=== PATIENT | male | born 1990 | race American Indian/Alaskan Native ===

== ENCOUNTER 2018-10-13 09:38 | Emergency (ER) | payer OTHER ==
[2018-10-13] MEDS ORDERED: NARCAN 2 MG/2 ML IV ONE (09:48)
--- NOTE | 2018-10-13 10:24 | XRay Report ---
AP CHEST: HISTORY: Difficulty in breathing AP view of the chest demonstrates a normal mediastinal and cardiac contour with clear lungs and normal bony and soft tissue structures. IMPRESSION: Unremarkable AP chest.
[2018-10-13 10:46] LABS: Basophils % (Auto) 0.2 % (0.0-1.8); Hematocrit 45.2 % (35.5-45.6); Hemoglobin 15.7 gm/dl (11.8-15.2); Lymphocytes # (Auto) 1.2 K/mm3 (1.2-5.4); Lymphocytes % (Auto) 10.1 % (13.4-35.0); Mean Corpuscular HGB Conc 35 % (32-34); Mean Corpuscular Volume 94 fl (84-94); Monocytes # (Auto) 0.5 K/mm3 (0.0-0.8); Platelet Count 151 K/mm3 (140-440); Red Blood Count 4.83 M/mm3 (3.65-5.03); Red Cell Distribution Width 13.4 % (13.2-15.2)
[2018-10-13 11:12] LABS: Alanine Aminotransferase 16 units/L (7-56); Albumin 4.4 g/dL (3.9-5); BUN/Creatinine Ratio 7; Blood Urea Nitrogen 7 mg/dL (9-20); Calcium 8.5 mg/dL (8.4-10.2); Creatine Kinase MB 4.8 ng/mL (0.0-4.0); Hemolysis Index 30
[2018-10-13 11:26] LABS: Bilirubin,Direct < 0.2 mg/dL (0-0.2)
--- NOTE | 2018-10-13 11:28 | Emergency Department Report ---
ED Neuro Deficit HPI - General Chief Complaint: Overdose Stated Complaint: ALLERGIC REACTION Time Seen by Provider: 10/13/18 09:47 Source: patient, EMS Mode of arrival: Stretcher Limitations: Other - History of Present Illness -: Sudden - Related Data Home Medications: Home Medications Medication Instructions Recorded Confirmed Last Taken No Known Home Medications [No 10/13/18 10/13/18 Unknown Reported Home Medications] Allergies/Adverse Reactions: Allergies Allergy/AdvReac Type Severity Reaction Status Date / Time No Known Allergies Allergy Verified 10/13/18 11:53 ED Review of Systems ROS: Stated complaint: ALLERGIC REACTION Other details as noted in HPI ED Past Medical Hx - Past Medical History Previous Medical History?: No - Surgical History Past Surgical History?: No - Social History Smoking Status: Unknown if ever smoked Substance Use Type: Other - Medications Home Medications: Home Medications Medication Instructions Recorded Confirmed Last Taken Type No Known Home Medications [No 10/13/18 10/13/18 Unknown History Reported Home Medications] ED Neuro Physical Exam - General Limitations: Other ED Course Vital Signs 10/13/18 10/13/18 10/13/18 09:40 09:46 09:47 Temperature 98.4 F Pulse Rate 96 H 105 H 94 H Respiratory 17 22 10 L Rate Blood Pressure 151/79 Blood Pressure 157/80 [Right] O2 Sat by Pulse 100 Oximetry 10/13/18 10/13/18 10/13/18 10:00 10:15 10:31 Temperature Pulse Rate 87 87 80 Respiratory 13 16 14 Rate Blood Pressure 157/96 157/96 152/94 Blood Pressure [Right] O2 Sat by Pulse 85 100 100 Oximetry 10/13/18 10/13/18 10/13/18 10:45 11:01 11:15 Temperature Pulse Rate 93 H 95 H 97 H Respiratory 15 12 10 L Rate Blood Pressure 152/94 149/89 165/89 Blood Pressure [Right] O2 Sat by Pulse 100 96 91 Oximetry 10/13/18 11:31 Temperature Pulse Rate 96 H Respiratory 10 L Rate Blood Pressure 147/89 Blood Pressure [Right] O2 Sat by Pulse 96 Oximetry - Lab Data Result diagrams: 10/13/18 10:29 10/13/18 10:29 Lab Results 10/13/18 10/13/18 Range/Units 10:29 10:29 WBC 11.6 H (4.5-11.0) K/mm3 RBC 4.83 (3.65-5.03) M/mm3 Hgb 15.7 H (11.8-15.2) gm/dl Hct 45.2 (35.5-45.6) % MCV 94 (84-94) fl MCH 33 H (28-32) pg MCHC 35 H (32-34) % RDW 13.4 (13.2-15.2) % Plt Count 151 (140-440) K/mm3 Lymph % (Auto) 10.1 L (13.4-35.0) % [place] % (Auto) 4.0 (0.0-7.3) % Eos % (Auto) 0.0 (0.0-4.3) % Baso % (Auto) 0.2 (0.0-1.8) % Lymph # 1.2 (1.2-5.4) K/mm3 [place] # 0.5 (0.0-0.8) K/mm3 Eos # 0.0 (0.0-0.4) K/mm3 Baso # 0.0 (0.0-0.1) K/mm3 Seg Neutrophils % 85.7 H (40.0-70.0) % Seg Neutrophils # 10.0 H (1.8-7.7) K/mm3 Sodium 138 (137-145) mmol/L Potassium 3.8 (3.6-5.0) mmol/L Chloride 101.0 (98-107) mmol/L Carbon Dioxide 26 (22-30) mmol/L Anion Gap 15 mmol/L BUN 7 L (9-20) mg/dL Creatinine 1.0 (0.8-1.5) mg/dL Estimated GFR > 60 ml/min BUN/Creatinine Ratio 7 % Glucose 148 H (75-100) mg/dL Calcium 8.5 (8.4-10.2) mg/dL Magnesium 2.60 H (1.7-2.3) mg/dL Total Bilirubin 0.50 (0.1-1.2) mg/dL Direct Bilirubin < 0.2 (0-0.2) mg/dL Indirect Bilirubin 0.3 mg/dL AST 24 (5-40) units/L ALT 16 (7-56) units/L Alkaline Phosphatase 54 (35-129) units/L Total Creatine Kinase 421 H (55-170) units/L CK-MB (CK-2) 4.8 H (0.0-4.0) ng/mL CK-MB (CK-2) Rel Index 1.1 (0-4) Total Protein 7.5 (6.3-8.2) g/dL Albumin 4.4 (3.9-5) g/dL Albumin/Globulin Ratio 1.4 % Laboratory Results - last 24 hr 10/13/18 10/13/18 10:29 10:29 WBC 11.6 H RBC 4.83 Hgb 15.7 H Hct 45.2 MCV 94 MCH 33 H MCHC 35 H RDW 13.4 Plt Count 151 Lymph % (Auto) 10.1 L [place] % (Auto) 4.0 Eos % (Auto) 0.0 Baso % (Auto) 0.2 Lymph # 1.2 [place] # 0.5 Eos # 0.0 Baso # 0.0 Seg Neutrophils % 85.7 H Seg Neutrophils # 10.0 H Sodium 138 Potassium 3.8 Chloride 101.0 Carbon Dioxide 26 Anion Gap 15 BUN 7 L Creatinine 1.0 Estimated GFR > 60 BUN/Creatinine Ratio 7 Glucose 148 H Calcium 8.5 Magnesium 2.60 H Total Bilirubin 0.50 Direct Bilirubin < 0.2 Indirect Bilirubin 0.3 AST 24 ALT 16 Alkaline Phosphatase 54 Total Creatine Kinase 421 H CK-MB (CK-2) 4.8 H CK-MB (CK-2) Rel Index 1.1 Total Protein 7.5 Albumin 4.4 Albumin/Globulin Ratio 1.4 Critical care attestation.: If time is entered above; I have spent that time in minutes in the direct care of this critically ill patient, excluding procedure time. ED Disposition Condition: Stable Referrals: PRIMARY CARE, [Primary Care Provider] - 3-5 Days
[2018-10-13] MEDS ORDERED: NARCAN 0.4 MG/1 ML IV ONE (11:50)
[2018-10-13] MEDS ORDERED: NARCAN 0.4 MG/1 ML ONE (11:50)
[2018-10-13 12:51] LABS: Bilirubin,Urine NEG (Negative); Blood,Urine NEG (Negative); Color,Urine Straw (Yellow); Granular Casts,Urine 3 /LPF; Hyaline Casts,Urine 1 /LPF; Mucus,Urine FEW /HPF; Protein,Urine <15 mg/dL mg/dL (Negative); Urobilinogen,Urine < 2.0 mg/dL (<2.0)
[2018-10-13 12:58] LABS: Benzodiazepines Screen,Urine PRESUMPTIVE NEGATIVE; Methadone Screen,Urine PRESUMPTIVE NEGATIVE; Opiate Screen,Urine PRESUMPTIVE NEGATIVE
[2018-10-13 13:34] LABS: Amphetamine Screen,Urine PRESUMPTIVE POSITIVE; Cannabinoid Screen,Urine PRESUMPTIVE POSITIVE; Cocaine Screen,Urine PRESUMPTIVE POSITIVE
--- NOTE | 2018-10-13 14:47 | Cat Scan Report ---
CT HEAD WITHOUT CONTRAST: HISTORY: Altered mental status. TECHNIQUE: Sequential 2.5mm CT images. COMPARISON: none. FINDINGS: Cerebral Parenchyma: Within normal limits. Cerebellum: Within normal limits. Brainstem: Within normal limits. Ventricles: Normal. Sella: Normal. Extra-axial spaces: Normal. Basal Cisterns: Normal. Intracranial Hemorrhage: None. Midline Shift: None. Calvarium: Normal. Sinuses: Normal. Mastoid Air Cells: Normal. Visualized Orbits: Normal. IMPRESSION: Cranial CT scan within normal limits.
--- NOTE | 2018-10-13 14:50 | Emergency Department Report ---
ED General Adult HPI - General Chief complaint: Overdose Stated complaint: ALLERGIC REACTION Time Seen by Provider: 10/13/18 09:47 Source: patient, EMS Mode of arrival: Stretcher Limitations: Other - History of Present Illness Initial comments: 8-year-old male is brought in by EMS with what they presumed was a "allergic reaction". The patient was found with depressed respirations. Medics were told he took a "new medication" otherwise specified. They stated that the patient had some wheezing "in his right side". He was given Benadryl as well as ne bulized albuterol. He was found to have a also oximetry that was quite low they state on their arrival. His blood glucose was in the 90s. Patient arrived at this facility with the [facility] treatment in progress. He had not been given prior Narcan. His pupils were myotic. It appeared reasonably likely that he had an opioid overdose. Therefore he was given Narcan. He had a rather dramatic awakening shortly thereafter. Despite regaining a good level of consciousness, the patient denied any recent substance abuse. He was initially agitated. However his respiratory rate immediately improved as well as his overall level of consciousness. -: unknown Severity scale (0 -10): 0 - Related Data Home Medications Medication Instructions Recorded Confirmed Last Taken No Known Home Medications [No 10/13/18 10/13/18 Unknown Reported Home Medications] Allergies Allergy/AdvReac Type Severity Reaction Status Date / Time No Known Allergies Allergy Verified 10/13/18 11:53 ED Review of Systems ROS: Stated complaint: ALLERGIC REACTION Other details as noted in HPI Comment: Unobtainable due to pts medical conditions ED Past Medical Hx - Past Medical History Previous Medical History?: No - Surgical History Past Surgical History?: No - Social History Smoking Status: Unknown if ever smoked Substance Use Type: Other (strongly suspected) - Medications Home Medications: Home Medications Medication Instructions Recorded Confirmed Last Taken Type No Known Home Medications [No 10/13/18 10/13/18 Unknown History Reported Home Medications] ED Physical Exam - General Limitations: Altered Mental Status General appearance: other (agitated) - Head Head exam: Present: atraumatic, normocephalic - Eye Eye exam: Present: normal appearance. Absent: scleral icterus Pupils: Present: miosis - ENT ENT exam: Present: mucous membranes moist - Neck Neck exam: Present: normal inspection. Absent: tenderness, meningismus - Respiratory Respiratory exam: Present: decreased breath sounds, other (depressed respirations). Absent: respiratory distress - Cardiovascular Cardiovascular Exam: Present: regular rate, normal rhythm. Absent: systolic murmur, diastolic murmur, rubs, gallop - GI/Abdominal GI/Abdominal exam: Present: soft, normal bowel sounds. Absent: distended, tenderness, guarding, rebound - Rectal Rectal exam: Present: deferred - Extremities Exam Extremities exam: Present: normal inspection - Back Exam Back exam: Present: normal inspection - Neurological Exam Neurological exam: Present: alert, oriented X3, CN II-XII intact (as testable). Absent: motor sensory deficit - Psychiatric Psychiatric exam: Present: normal affect, normal mood - Skin Skin exam: Present: warm, dry, intact, normal color. Absent: rash ED Course Vital Signs 10/13/18 10/13/18 10/13/18 09:40 09:46 09:47 Temperature 98.4 F Pulse Rate 96 H 105 H 94 H Respiratory 17 22 10 L Rate Blood Pressure 151/79 Blood Pressure 157/80 [Right] O2 Sat by Pulse 100 Oximetry 10/13/18 10/13/18 10/13/18 10:00 10:15 10:31 Temperature Pulse Rate 87 87 80 Respiratory 13 16 14 Rate Blood Pressure 157/96 157/96 152/94 Blood Pressure [Right] O2 Sat by Pulse 85 100 100 Oximetry 10/13/18 10/13/18 10/13/18 10:45 11:01 11:15 Temperature Pulse Rate 93 H 95 H 97 H Respiratory 15 12 10 L Rate Blood Pressure 152/94 149/89 165/89 Blood Pressure [Right] O2 Sat by Pulse 100 96 91 Oximetry 10/13/18 10/13/18 10/13/18 11:31 11:45 12:00 Temperature Pulse Rate 96 H 100 H 90 Respiratory 10 L 21 11 L Rate Blood Pressure 147/89 147/89 152/86 Blood Pressure [Right] O2 Sat by Pulse 96 94 99 Oximetry 10/13/18 10/13/18 10/13/18 12:15 12:31 12:45 Temperature Pulse Rate 91 H 92 H 83 Respiratory 12 12 12 Rate Blood Pressure 126/90 126/90 Blood Pressure [Right] O2 Sat by Pulse 95 96 93 Oximetry 10/13/18 10/13/18 10/13/18 13:01 13:15 13:31 Temperature Pulse Rate 90 91 H 81 Respiratory 9 L 14 8 L Rate Blood Pressure 138/69 138/69 145/82 Blood Pressure [Right] O2 Sat by Pulse Oximetry 10/13/18 10/13/18 13:45 14:01 Temperature Pulse Rate 90 107 H Respiratory 9 L 15 Rate Blood Pressure 145/82 149/86 Blood Pressure [Right] O2 Sat by Pulse 95 97 Oximetry - Reevaluation(s) Reevaluation #1: The patient became lethargic once again with pulse oximetry is 94-95. Therefore he was given additional Narcan. On his third reevaluation he was found to be somewhat altered and not answering questions appropriately. He was reasonably awake however and had a normal respiratory rate as well as pulse oximetry. He was judged to have a toxic encephalopathy. A CT of the head was ordered. He was referred to Dr. Constantino of the hospitalist service for further care and evaluation. 10/13/18 14:54 10/13/18 14:56 Urine drug screen was positive for amphetamines, cocaine and marijuana. I would strongly suspect opioids on board that were undetectable on the urine drug screen available. ED Medical Decision Making - Lab Data Result diagrams: 10/13/18 10:29 10/13/18 10:29 Laboratory Results - last 24 hr 10/13/18 10/13/18 10/13/18 10:29 10:29 12:27 WBC 11.6 H RBC 4.83 Hgb 15.7 H Hct 45.2 MCV 94 MCH 33 H MCHC 35 H RDW 13.4 Plt Count 151 Lymph % (Auto) 10.1 L [place] % (Auto) 4.0 Eos % (Auto) 0.0 Baso % (Auto) 0.2 Lymph # 1.2 [place] # 0.5 Eos # 0.0 Baso # 0.0 Seg Neutrophils % 85.7 H Seg Neutrophils # 10.0 H Sodium 138 Potassium 3.8 Chloride 101.0 Carbon Dioxide 26 Anion Gap 15 BUN 7 L Creatinine 1.0 Estimated GFR > 60 BUN/Creatinine Ratio 7 Glucose 148 H Calcium 8.5 Magnesium 2.60 H Total Bilirubin 0.50 Direct Bilirubin < 0.2 Indirect Bilirubin 0.3 AST 24 ALT 16 Alkaline Phosphatase 54 Total Creatine Kinase 421 H CK-MB (CK-2) 4.8 H CK-MB (CK-2) Rel Index 1.1 Total Protein 7.5 Albumin 4.4 Albumin/Globulin Ratio 1.4 Urine Color Straw Urine Turbidity Clear Urine pH 6.0 Ur Specific [place] 1.011 Urine Protein <15 mg/dl Urine Glucose (UA) Neg Urine Ketones Neg Urine Blood Neg Urine Nitrite Neg Urine Bilirubin Neg Urine Urobilinogen < 2.0 Ur Leukocyte Esterase Neg Urine WBC (Auto) 8.0 H Urine RBC (Auto) 2.0 U Epithel Cells (Auto) < 1.0 Hyaline Casts 1 Granular Casts 3 Urine Mucus Few Urine Opiates Screen Urine Methadone Screen Ur Barbiturates Screen Ur Phencyclidine Scrn Ur Amphetamines Screen U Benzodiazepines Scrn Urine Cocaine Screen U Marijuana (THC) Screen Drugs of Abuse Note 10/13/18 12:27 WBC RBC Hgb Hct MCV MCH MCHC RDW Plt Count Lymph % (Auto) [place] % (Auto) Eos % (Auto) Baso % (Auto) Lymph # [place] # Eos # Baso # Seg Neutrophils % Seg Neutrophils # Sodium Potassium Chloride Carbon Dioxide Anion Gap BUN Creatinine Estimated GFR BUN/Creatinine Ratio Glucose Calcium Magnesium Total Bilirubin Direct Bilirubin Indirect Bilirubin AST ALT Alkaline Phosphatase Total Creatine Kinase CK-MB (CK-2) CK-MB (CK-2) Rel Index Total Protein Albumin Albumin/Globulin Ratio Urine Color Urine Turbidity Urine pH Ur Specific [place] Urine Protein Urine Glucose (UA) Urine Ketones Urine Blood Urine Nitrite Urine Bilirubin Urine Urobilinogen Ur Leukocyte Esterase Urine WBC (Auto) Urine RBC (Auto) U Epithel Cells (Auto) Hyaline Casts Granular Casts Urine Mucus Urine Opiates Screen Presumptive negative Urine Methadone Screen Presumptive negative Ur Barbiturates Screen Presumptive negative Ur Phencyclidine Scrn Presumptive negative Ur Amphetamines Screen Presumptive positive U Benzodiazepines Scrn Presumptive negative Urine Cocaine Screen Presumptive positive U Marijuana (THC) Screen Presumptive positive Drugs of Abuse Note Disclamer - EKG Data -: EKG Interpreted by [place] EKG shows normal: sinus rhythm, axis, intervals, QRS complexes, ST-T waves Rate: normal - EKG Data Interpretation: LVH (consider LVH or acute ischemic changes) - Radiology Data Radiology results: report reviewed (CT head and chest x-ray show no acute process) Critical care attestation.: If time is entered above; I have spent that time in minutes in the direct care of this critically ill patient, excluding procedure time. ED Disposition Clinical Impression: Toxic encephalopathy, Polysubstance abuse Overdose Qualifiers: Encounter type: initial encounter Injury intent: accidental or unintentional Qualified Code(s): T50.901A - Poisoning by unspecified drugs, medicaments and biological substances, accidental (unintentional), initial encounter Disposition: 09 OP ADMIT IP TO THIS HOSP Is pt being admited?: Yes Does the pt Need Aspirin: Yes Condition: Stable Referrals: PRIMARY CARE,MD [Primary Care Provider] - 3-5 Days Time of Disposition: 14:59
[2018-10-13] MEDS ORDERED: HABITROL TD ONE (19:00)
[2018-10-13] MEDS ORDERED: NARCAN 2 MG/2 ML ONE (20:31)
[2018-10-13 23:26] VITALS: BP 122/74
== END 2018-10-13 23:34 | disposition admitted as inpatient to this hospital (09) ==
LOC: ED 09:38
DX: T50.901A Poisoning by unspecified drugs, medicaments and biological substances, accidental (unintentional), initial encounter (principal); G92 Toxic encephalopathy; F15.10 Other stimulant abuse, uncomplicated; F12.10 Cannabis abuse, uncomplicated; F14.10 Cocaine abuse, uncomplicated; Y92.89 Other specified places as the place of occurrence of the external cause
CPT/HCPCS: 36415; 70450; 71045; 80048; 80076; 80307; 81001; 82550; 82553; 83735; 85025; 93005; 93010; 96374; 96376; 99285; J2310